=== PATIENT | female | born 1985 | race Caucasian/White ===

== ENCOUNTER 2018-04-24 18:13 | Inpatient (IN) | payer OTHER ==
[2018-04-24 19:53] VITALS: BMI 33.6
[2018-04-24 20:38] LABS: BASO % 0.2 % (0.0-2.0); HEMOGLOBIN 11.7 g/dL (12.0-16.0); LYMPH # 2.7 K/uL (1.0-4.3); LYMPH % 23.3 % (20.0-40.0); MEAN CELL VOLUME 86.4 fl (81.0-99.0); MEAN CORPUSCULAR HEMOGLOBIN 29.3 pg (27.0-31.0); MEAN CORPUSCULAR HGB CONC 33.9 g/dL (33.0-37.0); MEAN PLATELET VOLUME 8.2 fl (7.2-11.7); MONO # 0.6 K/uL (0.0-0.8); MONO % 5.5 % (0.0-10.0); NEUT # 8.3 K/uL (1.8-7.0); RBC 3.99 Mil/uL (3.80-5.20); RED CELL DISTRIBUTION WIDTH 14.6 % (11.5-14.5); WHITE BLOOD COUNT 11.7 K/uL (4.8-10.8)
--- NOTE | 2018-04-25 11:10 | OBPN ---
Datetime: 04/25/2018 10:15 IP Progress Impression: Reassuring heart rate IP Informed Consent Obtain: Vaginal Delivery; Risks, Benefits and Alternatives Discussed IP Progress Plan: Continue present management; Induction; Cervical Ripening; Anticipate Vaginal Deli very Contraction Comments Provider: none IP Progress Note Comment: She had cewrvidil placed last night. [place] occ CTX A: 41w IOL...will continue with Cytotec PO...pt understands IOl, medications pain management, labo r, delivery and postpartujm FHR Category Provider Fetus A: Category I Dilatation, Provider: 0 Datetime: 04/24/2018 18:30 FHR - Baseline A Provider: 135 Gestation - Est Wks by US: 40.6 Vital Signs Provider: Reviewed; Within Normal Limits NICHD Accel Fetus A IP Provider: 15X15 NICHD Variability Prov Fetus A: Moderate 6-25bpm NICHD Decel Fetus A IP Provider: None
--- NOTE | 2018-04-25 12:11 | OBADHP ---
Datetime: 04/25/2018 10:15 Contraction Comments Provider: none FHR Category Provider Fetus A: Category I Dilatation, Provider: 0 Datetime: 04/24/2018 18:30 Admit Comment, IP Provider: 33 y/o female at 40.6 wk GA presents to [facility] due to lower pevlic pressure that started today. She denies vaginal fluid loss, vaginal bleed. She endorses moveme nts. She denies CP, SOB, headache, visual changes, urinary sx. OB: Dr. 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 OB hx: placenta previa until 30 weeks, resolved HomeRx: vitamins PastSurg: denies Socialhx: denies toxic habits Famhx: non-contributory Allergies: NKDA ROS: negative except per HPI Physical Exam: Gen: comfortable, no acute distress Heat: S1S2 present, RRR Lungs: clear bilaterally Abd: gravid, soft, non-tender Extremities: +1 edema, no tenderness, no erythema Assessment and Plan 33 y/o female at 40.6 wk GA IUP Late term GBS neg, HBsAg neg, HIV neg, RPR neg Admit to L_D for IOL CBC, type and screen Cervidil 10mg Vag x 1 NST FHR and toco monitor Can have epidural; anesthesiology consulted cleo Willard Pelvic Type - PN: Not Done Extremities - PN: Normal Abdomen - PN: Normal Back - PN: Not Done Breast - PN: Not Done Lungs - PN: Normal Heart - PN: Normal Thyroid - PN: Not Done Neurologic - PN: Not Done HEENT - PN: Not Done General - PN: Normal FHR - Baseline A Provider: 135 Gestation - Est Wks by US: 40.6 IP Hx Assessment: The History has been Reviewed and is Current Vital Signs Provider: Reviewed; Within Normal Limits IP Chief Complaint: Maternal discomfort NICHD Variability Prov Fetus A: Moderate 6-25bpm NICHD Accel Fetus A IP Provider: 15X15 NICHD Decel Fetus A IP Provider: None Genitourinary Exam: Not Done DTRs - PN: Not Done IP Adm Impression: Term, intrauterine IP Admit Plan: Admit to unit; Initiate labor protocol; Initiate labor induction protocol
--- NOTE | 2018-04-25 16:33 | OBHP ---
Datetime: 04/25/2018 10:15 Contraction Comments Provider: none FHR Category Provider Fetus A: Category I Dilatation, Provider: 0 Datetime: 04/24/2018 18:30 IP Adm Impression: Term, intrauterine IP Admit Plan: Admit to unit; Initiate labor protocol; Initiate labor induction protocol Admit Comment, IP Provider: 33 y/o female at 40.6 wk GA presents to [facility] due to lower pevlic pressure that started today. She denies vaginal fluid loss, vaginal bleed. She endorses moveme nts. She denies CP, SOB, headache, visual changes, urinary sx. OB: Dr. 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 OB hx: placenta previa until 30 weeks, resolved HomeRx: vitamins PastSurg: denies Socialhx: denies toxic habits Famhx: non-contributory Allergies: NKDA ROS: negative except per HPI Physical Exam: Gen: comfortable, no acute distress Heat: S1S2 present, RRR Lungs: clear bilaterally Abd: gravid, soft, non-tender Extremities: +1 edema, no tenderness, no erythema Assessment and Plan 33 y/o female at 40.6 wk GA IUP Late term GBS neg, HBsAg neg, HIV neg, RPR neg Admit to L_D for IOL CBC, type and screen Cervidil 10mg Vag x 1 NST FHR and toco monitor Can have epidural; anesthesiology consulted cleo Willard OB Hospitalist on-call: + CTX; start IOL with Cervidil for postdate preg Pelvic Type - PN: Not Done Extremities - PN: Normal Abdomen - PN: Normal Back - PN: Not Done Breast - PN: Not Done Lungs - PN: Normal Heart - PN: Normal Thyroid - PN: Not Done Neurologic - PN: Not Done HEENT - PN: Not Done General - PN: Normal FHR - Baseline A Provider: 135 Gestation - Est Wks by US: 40.6 IP Hx Assessment: The History has been Reviewed and is Current Vital Signs Provider: Reviewed; Within Normal Limits IP Indication for Induction Oth: late term IP Chief Complaint: Maternal discomfort NICHD Variability Prov Fetus A: Moderate 6-25bpm NICHD Accel Fetus A IP Provider: 15X15 NICHD Decel Fetus A IP Provider: None Genitourinary Exam: Not Done DTRs - PN: Not Done
[2018-04-25] MEDS ORDERED: Nalbuphine HCL 10 mg/ml Ampule IVP PRN (23:27)
[2018-04-25] MEDS ORDERED: Nalbuphine 20 mg/ml Inj (10 ml) ONE (23:35)
[2018-04-26] MEDS: Lactated Ringer's 1,000 ML IV SCH ×6 (02:50→15:30)
[2018-04-26] MEDS ORDERED: Bupivacaine HCl 0.5% PF (30 ml) Inj ONE (04:13)
[2018-04-26] MEDS ORDERED: Fentanyl/Bupivacaine HCl 250 ML EPI ONE (04:45)
[2018-04-26] MEDS ORDERED: Oxytocin 30 UNIT 30 UNITS/500 ML BAG IV ONE ×2 (06:42→06:43)
[2018-04-26] MEDS ORDERED: OXYTOCIN/0.9 % NS 20 UNIT/1,000 ML BAG IV SCH (06:45)
--- NOTE | 2018-04-26 09:45 | OBPN ---
Datetime: 04/26/2018 06:30 IP Progress Impression: Normal progression of labor; Reassuring heart rate IP Progress Plan: Induction; Anticipate Vaginal Delivery IP Progress Note Comment: Notified last night, she had SROM and CTX pain was more intense. SHe was 3cm and rec'd epidural. She was checked againand still 3cm. Will start Pitocin for continued induction; pt understands medication, labor and risks/complicatio ns. FHR Category Provider Fetus A: Category I Datetime: 04/25/2018 21:00 IP Procedures: Sterile Vag Exam FHR - Baseline A Provider: 150 Gestation - Est Wks by US: 41.0 Vital Signs Provider: Reviewed Vital Signs Provider Details: 1 Elevated BP reading 145/107. Will monitor closely. NICHD Accel Fetus A IP Provider: 15X15 NICHD Variability Prov Fetus A: Moderate 6-25bpm Dilatation, Provider: FT Effacement, Provider: thick Station, Provider: high NICHD Decel Fetus A IP Provider: None
[2018-04-26] MEDS ORDERED: Morphine 1 mg/ml preservative-free Inj(Duramorph) ONE ×2 (11:59→19:21)
[2018-04-26] MEDS ORDERED: ceFAZolin IV 2 gm in Dextrose 2 GM/50 ML BAG IVPB ONE ×2 (19:01→19:06)
[2018-04-26] MEDS ORDERED: Lidocaine 2% PF (10 ml) Amp ONE (19:10)
[2018-04-26] MEDS ORDERED: ePHEDrine 50 mg/ml Inj ONE (19:16)
[2018-04-26] MEDS ORDERED: Dexamethasone 4 mg/1 ml ONE (19:21)
[2018-04-26] MEDS ORDERED: Oxycodone/Acetaminophen 5/325 mg Tab PO PRN ×2 (20:45→22:26)
[2018-04-26] MEDS ORDERED: DiphenhydrAMINE 50 mg/ml Inj IVP PRN ×2 (20:45→22:26)
[2018-04-26] MEDS ORDERED: Morphine 4 MG/ML VIAL IV PRN (22:26)
[2018-04-26] MEDS ORDERED: Lactated Ringer's 1,000 ML IV SCH (22:26)
[2018-04-27] MEDS: Oxycodone/Acetaminophen 5/325 mg Tab PO PRN ×5 (04:15→22:02)
[2018-04-27] MEDS: Multivitamin With Minerals Tab PO SCH (08:27)
[2018-04-27 08:38] LABS: HEMOGLOBIN 8.5 g/dL (12.0-16.0); MEAN CELL VOLUME 87.7 fl (81.0-99.0); MEAN CORPUSCULAR HEMOGLOBIN 29.8 pg (27.0-31.0); RBC 2.84 Mil/uL (3.80-5.20); RED CELL DISTRIBUTION WIDTH 14.8 % (11.5-14.5); WHITE BLOOD COUNT 16.2 K/uL (4.8-10.8)
[2018-04-27] MEDS ORDERED: Multivitamin With Minerals Tab PO SCH (09:00)
--- NOTE | 2018-04-27 09:38 | OBPN ---
Datetime: 04/26/2018 19:06 IP Progress Impression: Arrest of dilatation/descent IP Informed Consent Obtain: IP Procedures: Sterile Vag Exam IP Progress Plan: Deliver- Section IP Progress Note Comment: No progress in 7 hours despite pitocin augmentation. Recommended C-Sectio n delivery due to arrest of dilation. Discussed the R/B/A of surgery with patient. All patient ques tions answered and patient agrees with plan.
--- NOTE | 2018-04-27 09:40 | OBDS ---
DELIVERY PERSONNEL Delivery Doctor: Amandeep Boggs MD Sandblaster Supervisor: Chasidy Odom RN Anesthesiologist: Kendell Blount MD Resident: Dr. Bear, PGY2 MATERNAL INFORMATION Delivery Anesthesia: Epidural Medications in Delivery: Ancef, Pitocin Estimated Blood Loss (ml): 800 Placenta Cultured: No Maternal Complications: None Provider Comments: 1' LFT C/S Pt delivered viable male with apgars 9/9. 8#11oz. Normal uterus, tubes and ovaries bilate rally. No complications. EBL 800cc IVF 1500cc LR UO 100cc No complications. Refer to dictation. LABOR SUMMARY EDC: 04/18/2018 00:00 No. Babies in Womb: 1 Attempted: No Labor Anesthesia: Epidural LABOR INFORMATION Reason for Induction: Postterm Cervical Ripening Agents: Cytotec @ 50mcg PO Oxytocin: Induction Group B Beta Strep: Negative Antibiotics # of Doses: n/a Antibiotics Time of Last Dose: n/a Steroids Given: None Reason Steroids Not Administered: Not Applicable MEMBRANES Membranes Rupture Method: Spontaneous Rupture of Membranes: 04/26/2018 00:45 Length of Rupture (hrs): 19.03 Amniotic Fluid Color: Clear (Annotations: leaking) Amniotic Fluid Amount: Small Amniotic Fluid Odor: None STAGES OF LABOR Stage 3 hrs: 0 Stage 3 min: 1 CSECTION DELIVERY Primary Indication: Arrest of dilation CSection Urgency: Non Elective CSection Incidence: Primary Labor: Labor Elective: Nonelective CSection Incision: Lower Uterine Transverse Uterine Closure: Double-layer closure BABY A INFORMATION Infant Delivery Date/Time: 04/26/2018 19:47 Method of Delivery: Born in Route : No : N/A Forceps: N/A Vacuum Extraction: N/A Shoulder Dystocia : No SHOULDER DYSTOCIA BABY A Delivery Date/Time: 04/26/2018 19:47 PRESENTATION/POSITION BABY A Presentation: Cephalic Cephalic Presentation: Vertex Breech Presentation: N/A PLACENTA INFORMATION BABY A Placenta Delivery Time : 04/26/2018 19:48 Placenta Method of Delivery: Manual Removal Placenta Status: Delivered SCORES BABY A Heart Rate 1 min: >100 bpm Resp Effort 1 min: Good Cry Reflex Irritability 1 min: Cough or Sneeze or Pulls Away Muscle Tone 1 min: Some Flexion of Extremities Color 1 min: Body [place], Extremities Blue Resuscitation Effort 1 min: N/A SCORE 1 MIN: 8 Heart Rate 5 min: >100 bpm Resp Effort 5 min: Good Cry Reflex Irritability 5 min: Cough or Sneeze or Pulls Away Muscle Tone 5 min: Active Motion Color 5 min: Body [place], Extremities Blue Resuscitation Effort 5 min: N/A SCORE 5 MIN: 9 INFORMATION BABY A Gestational Age at Delivery: 41.1 Gestational Status: Post-term Infant Outcome : Liveborn Condition : Fair Sex: Male IDENTIFICATION/MEDS BABY A ID Band Number: [id number] ID Band Location: Left Leg; Left Arm WEIGHT/LENGTH BABY A Birthweight (gms): 3940 Weight (lb): 8 Weight (oz): 11 CORD INFORMATION BABY A No. Cord Vessels: 3 Nuchal Cord : N/A Cord pH Baby Arterial: 7.30 Cord Blood Taken: Yes Suction: Mouth; Nose ASSESSMENT BABY A Infant Complications: Multiple Late Decels; Multiple Variable Decels; Meconium Physical Findings at Delivery: Within Normal Limits Infant Respirations: Appears Normal Quality Technician Fiberglass/ALS Called : No Infant Care By: Danna Mckenna RN, Dr. Bunn Transferred To: Remains with Mother
--- NOTE | 2018-04-27 09:43 | OBDS ---
DELIVERY PERSONNEL Delivery Doctor: Amandeep Boggs MD Photograph Inspector: Chasidy Odom RN Anesthesiologist: Kendell Blount MD Resident: Dr. Bear, PGY2 MATERNAL INFORMATION Delivery Anesthesia: Epidural Medications in Delivery: Ancef, Pitocin Estimated Blood Loss (ml): 800 Placenta Cultured: No Maternal Complications: None Provider Comments: 1' LFT C/S Pt delivered viable male with apgars 9/9. 8#11oz. Normal uterus, tubes and ovaries bilate rally. No complications. EBL 800cc IVF 1500cc LR UO 100cc No complications. Refer to dictation. LABOR SUMMARY EDC: 04/18/2018 00:00 No. Babies in Womb: 1 Attempted: No Labor Anesthesia: Epidural LABOR INFORMATION Reason for Induction: Postterm Cervical Ripening Agents: Cytotec @ 50mcg PO Cervical Ripening Agents: Cytotec @ 50 Cervical Ripening Agents: Cytotec @ (Annotations: 50 mcg as per order ) Cervical Ripening Agents: Cervidil (Annotations: removed at this time by Dr Millard ) Cervical Ripening Agents: Cervidil (Annotations: inserted by Dr. Simpson) Oxytocin: Induction Group B Beta Strep: Negative Group B Beta Strep: Negative Antibiotics # of Doses: n/a Antibiotics Time of Last Dose: n/a Steroids Given: None Reason Steroids Not Administered: Not Applicable MEMBRANES Membranes Rupture Method: Spontaneous Rupture of Membranes: 04/26/2018 00:45 Length of Rupture (hrs): 19.03 Amniotic Fluid Color: Clear Amniotic Fluid Color: Clear (Annotations: leaking) Amniotic Fluid Color: Clear Amniotic Fluid Color: Clear Amniotic Fluid Color: Clear Amniotic Fluid Amount: Small Amniotic Fluid Odor: None STAGES OF LABOR Stage 3 hrs: 0 Stage 3 min: 1 CSECTION DELIVERY Primary Indication: Arrest of dilation CSection Urgency: Non Elective CSection Incidence: Primary Labor: Labor Elective: Nonelective CSection Incision: Lower Uterine Transverse Uterine Closure: Double-layer closure BABY A INFORMATION Delivery Date/Time: 04/26/2018 19:47 Method of Delivery: Born in Route : No : N/A Forceps: N/A Vacuum Extraction: N/A Shoulder Dystocia : No SHOULDER DYSTOCIA BABY A Delivery Date/Time: 04/26/2018 19:47 PRESENTATION/POSITION BABY A Presentation: Cephalic Presentation: Cephalic Presentation: Cephalic Presentation: Cephalic Presentation: Cephalic Presentation: Cephalic Cephalic Presentation: Vertex Breech Presentation: N/A PLACENTA INFORMATION BABY A Placenta Delivery Time : 04/26/2018 19:48 Placenta Method of Delivery: Manual Removal Placenta Status: Delivered SCORES BABY A Heart Rate 1 min: >100 bpm Resp Effort 1 min: Good Cry Reflex Irritability 1 min: Cough or Sneeze or Pulls Away Muscle Tone 1 min: Some Flexion of Extremities Color 1 min: Body [place], Extremities Blue Resuscitation Effort 1 min: N/A SCORE 1 MIN: 8 Heart Rate 5 min: >100 bpm Resp Effort 5 min: Good Cry Reflex Irritability 5 min: Cough or Sneeze or Pulls Away Muscle Tone 5 min: Active Motion Color 5 min: Body [place], Extremities Blue Resuscitation Effort 5 min: N/A SCORE 5 MIN: 9 INFORMATION BABY A Gestational Age at Delivery: 41.1 Gestational Status: Post-term Outcome : Liveborn Infant Condition : Fair Infant Sex: Male IDENTIFICATION/MEDS BABY A ID Band Number: [id number] ID Band Location: Left Leg; Left Arm WEIGHT/LENGTH BABY A Infant Birthweight (gms): 3940 Infant Weight (lb): 8 Infant Weight (oz): 11 CORD INFORMATION BABY A No. Cord Vessels: 3 Nuchal Cord : N/A Cord pH Baby Arterial: 7.30 Cord Blood Taken: Yes Suction: Mouth; Nose ASSESSMENT BABY A Complications: Multiple Late Decels; Multiple Variable Decels; Meconium Physical Findings at Delivery: Within Normal Limits Respirations: Appears Normal Driver'S Education Instructor/ALS Called : No Care By: Danna Mckenna RN, Dr. Bunn Transferred To: Remains with Mother
--- NOTE | 2018-04-27 21:59 | OP ---
PROCEDURE DATE: 04/26/2018 PREOPERATIVE DIAGNOSIS: Arrest of dilatation in active labor. POSTOPERATIVE DIAGNOSIS: Arrest of dilatation in active labor. OPERATION PERFORMED: Primary low-flap transverse section via Pfannenstiel incision. OPERATIVE FINDINGS: Viable infant male with Apgars of 9 and 9 at one and five minutes respectively, 8 pounds 11 ounces. Normal uterus, normal tubes and ovaries bilaterally. SURGEON: Gordo Boggs MD DIETARY INTERNSHIP: Dr. Bear ANESTHESIOLOGIST: Teressa Blount MD ANESTHESIA: Epidural. ESTIMATED BLOOD LOSS: 800 mL. FLUIDS: 1500 mL of lactated Ringer's. URINE OUTPUT: 100 mL of clear urine. COMPLICATIONS: None. DESCRIPTION OF PROCEDURE: The patient was taken to the operating room where epidural anesthesia was found to be adequate. The patient was prepped and draped in a normal sterile fashion in the dorsal supine position with leftward tilt. A Pfannenstiel skin incision was made with a scalpel. This was carried down through to the underlying layer of fascia with the scalpel. Midline dissection was made in the fascial layer with the scalpel. The fascial incision was then extended bilaterally sharply with curved Parson scissors. The fascial layer was from the underlying rectus muscles both bluntly and sharply with curved Parson scissors. The rectus muscles were at the midline. The peritoneum was then identified, tented upward with Donna clamps x2, and entered sharply with Metzenbaum scissors. This peritoneal incision was then extended superiorly and inferiorly with good visualization of the urinary bladder. A bladder blade was inserted into the abdomen. The vesicouterine peritoneum was then identified, tented up with Donna clamps x2, and entered sharply with Metzenbaum scissors. This peritoneal incision was then extended superiorly and inferiorly with good visualization of the urinary bladder. The bladder flap was created digitally. The Gifty retractor was placed over the urinary bladder. The uterus was incised with the scalpel. The uterine incision was extended bilaterally bluntly. The infant's head was delivered atraumatically. Nose and mouth were suctioned with bulb suction. The remainder of the was delivered without complication. The cord was clamped and cut. The was handed off to awaiting pediatricians. Cord gases were collected. Cord blood was collected. The placenta was removed manually. The uterus was cleared of all clots and debris. The uterine incision was repaired with 0 Vicryl in a running, locked fashion. The second layer with the same suture was used to imbricate the first and to obtain excellent hemostasis. Re-inspection of the uterine incision proved excellent hemostasis. The abdomen and pelvis were irrigated with copious amounts of warm normal saline. Re-inspection of the uterine incision proved excellent hemostasis. All instruments were removed from the patient. The peritoneal layer was closed with a running stitch of 2-0 chromic. The rectus muscles were reapproximated with a running stitch of 2-0 chromic. The fascial layer was closed with a running stitch of 0 Vicryl. Subcutaneous tissue was closed with a running stitch of 3-0 plain. The skin was closed with subcutaneous stitch of 3-0 Vicryl. The patient tolerated the procedure well. All sponge count, lap count, and needle counts were correct x2. The patient was given 2 g of Ancef just prior to the beginning of the procedure. There were no complications. The patient was taken to the recovery room in awake and stable condition. Gordo Boggs MD
[2018-04-28] MEDS: Oxycodone/Acetaminophen 5/325 mg Tab PO PRN ×5 (02:04→20:25)
--- NOTE | 2018-04-28 07:16 | OBPPN ---
Datetime: 04/28/2018 07:11 PP Pain Prov: Within normal limits PP Nausea Prov: Denies PP Flatus Prov: No PP BM Prov: No PP Abdomen/Uterus Prov: Normal PP Lochia Prov: Normal PP Vulva/Perineum Prov: Not Done PP Extremities Prov: Normal PP C/S Incision Prov: Normal PP Progress Prov: Normal PP Comments Phys Exam Prov: Incision w/ steri strips PP Impression Prov: Normal progression PP Plan Prov: Continue present management PP Progress Note Prov: POD 2 s/p primary c/s for arrest of dilation, doing well, trying to breast fe ed and bottle feeding Continue current care Vital Signs Provider PP: Reviewed
[2018-04-28] MEDS: Multivitamin With Minerals Tab PO SCH (08:21)
[2018-04-29] MEDS: Oxycodone/Acetaminophen 5/325 mg Tab PO PRN ×2 (04:15)
[2018-04-29] MEDS: Multivitamin With Minerals Tab PO SCH ×2 (07:45→10:06)
[2018-04-29] MEDS ORDERED: Measles, Mumps, and Rubella 0.5 ML VIAL SC ONE (10:00)
--- NOTE | 2018-04-29 10:11 | OBPPN ---
Datetime: 04/29/2018 10:09 PP Pain Prov: Within normal limits PP Nausea Prov: Denies PP Flatus Prov: Yes PP BM Prov: No PP Breasts Prov: Normal PP Heart Prov: Normal PP Lungs Prov: Normal PP Abdomen/Uterus Prov: Normal PP Lochia Prov: Normal PP Vulva/Perineum Prov: Normal PP CVA Tenderness Prov: Normal PP Extremities Prov: Normal PP C/S Incision Prov: Normal PP Progress Prov: Normal PP Impression Prov: Normal progression PP Plan Prov: Continue present management PP Progress Note Prov: She feels fine No BM A: S/p C/S day 3 Dulcolax supp/dishcarge home and folow up in 1-2w Vital Signs Provider PP: Within Normal Limits
--- NOTE | 2018-04-29 10:11 | OBDCSUM ---
Datetime: 04/29/2018 09:30 Discharged to, Provider: Home Follow up at, Provider: [facility] Disch Instr Activity: Normal activity Disch Instr Diet: Regular Discharge Diagnosis, Provider: Term Delivered Follow up in weeks, Provider: in 1 week Disch Activity Restrictions: No exercising; No lifting
[2018-04-29 18:53] VITALS: BP 135/78; PULSE 104; RESP 18; TEMP 97; O2SAT 99
== END 2018-04-29 13:30 | disposition home or self-care (01) | DRG 788 ==
LOC: H.EROB2 18:13 → H.L&D 19:56 → H.OB/GYN 04-27 00:45
PROVIDERS: ADMIT Obstetrics & Gynecology; ATTEND Obstetrics & Gynecology
PROC: 4A1HXCZ Monitoring of Products of Conception, Cardiac Rate, External Approach (ICD-10-PCS; 2018-04-24)
PROC: 10D00Z1 Extraction of Products of Conception, Low, Open Approach (ICD-10-PCS; principal; 2018-04-27)
DX: O48.0 Post-term pregnancy (principal); Z37.0 Single live birth; Z3A.41 41 weeks gestation of pregnancy; O62.0 Primary inadequate contractions; O77.0 Labor and delivery complicated by meconium in amniotic fluid; O76 Abnormality in fetal heart rate and rhythm complicating labor and delivery